=== PATIENT | female | born 1970 | race Caucasian/White ===

== ENCOUNTER → 2016-09-04 | Outpatient (CLI) | payer OTHER ==
[~2016-09-04] MED LIST: ADVIL200 M1 PO; ANTIDIARRHEAL2 MG PO; ANXIETY MED; ASPIRIN81 M2 PO; ASPIRINEC PO; AUGMENTIN400 MG PO; BACTRIM DS TABL1 TA1 PO; BENADRYL PO; BLOOD PRESSURE; BLOOD PRESSURE MED; BP MED; CELEXA10 M1 PO; CIPRO250 MG PO; CITALOPRAM HBR10 MG PO; COGENTIN PO; CORICIDIN COUGH1 TAB PO; DESYREL100 MG; DESYREL100 MG PO; DIURETIC; FLOMAX0.4 M1 PO; FLONASE 0.05% N16 G1; FLONASE 0.05% N16 GM; FLUOXETINE HCL20 M1 PO; HYDROCHLOROTHIA25 MG PO; HYDROXYZINE HCL25 M1 PO; IBUPROFEN; K-TAB ER20 MEQ PO; KEPPRA250 MG PO; LAMICTAL; LAMICTAL PO; LAMICTAL2 MG; LAMOTRIGINE OD200 MG; LAMOTRIGINE200 MG PO; LEVOTHROID25 MCG PO; LEVOTHYROXINE88 MCG PO; LEVOXYL100 MC1 PO; LOPRESSOR PO; MELOXICAM15 MG PO; METOPROLOL SUCC50 MG PO; MUCINEX PO; MUCUS RELIEF C400 MG; NAPROSYN500 MG PO; NAPROXEN PO; NORVASC PO; OLANZAPINE10 MG PO; OLANZAPINE5 MG PO; OMEPRAZOLE20 M1 PO; OMEPRAZOLE20 M2 PO; OMEPRAZOLE40 MG; OMNICEF300 MG PO; PANTOPRAZOLE SO20 MG PO; PANTOPRAZOLE SO40 MG PO; PATIENT'S PHARMACY; PAXIL PO; PHENERGAN PO; PHENERGAN25 M1 PO; PRILOSEC PO; PRILOSEC20 M1 PO; PRILOSEC20 MG PO; PROZAC PO; PYLERA CAPSULE1 CAP PO; QUETIAPINE FUM100 MG PO; QUETIAPINE FUM300 MG PO; QUETIAPINE FUM400 MG PO; RISPERIDONE PO; SEIZURE MED; SELFEMRA20 MG PO; SEROQUEL; SEROQUEL PO; SEROQUEL XR300 MG PO; SEROQUEL400 MG DOB; SEROQUEL400 MG PO; SEROQUEL50 MG DOB; SERTRALINE HCL50 M1 PO; SYNTHROID PO; SYNTHROID0.1 MG PO; SYNTHROID88 MCG PO; THYROID PILL; TOPROL XL 50 MG50 MG PO; TOPROL XL50 MG PO; VICODIN 5/1 TAB 5/50 PO; VICODIN 5/500 T1 TAB PO; VISTARIL; VOLTAREN75 MG PO; WATER PILL; ZOFRAN ODT4 MG PO; ZOLOFT50 MG PO; ZYPREXA ZYDI5 MG/TAB PO; [UNRECOGNIZED DRUG - OTHER] PO; [UNRECOGNIZED DRUG - OTHER] PO; [UNRECOGNIZED DRUG - REMARK]; [UNRECOGNIZED DRUG - REMARK] PO
--- NOTE | ~2016-09-04 | CR269 ---
[facility] A Service of [facility] RADIOLOGY TEXT RESULTS PATIENT: GAIL HOLLAND LOCATION: [facility] : 71 UNIT #: [id number] AGE: [address]: Cal Garcia MD SEX: F ORDER DR: [id number] [facility] [address] [place], [place] [address] [id number] O MR#: [id number] Acc #: [id number] NAME: GAIL HOLLAND : 1970 SEX: F STUDY DATE/TIME: 09/04/2016 9:08 UNIT: [facility] ROOM: STUDY DESCRIPTION: CR Upper GI and SBFT Attending Physician: Cal Garcia M.D. Referring Physician: Cal Garcia M.D. Ordering Physician: Cal Garcia M.D. Primary Care Physician: Gloria Gustafson A.P.R.N. MEDICAL IMAGING REPORT This report is preliminary unless electronic signature is present EXAM Upper GI and small bowel follow-through HISTORY Nausea, vomiting and diarrhea for 5 months. FINDINGS Procedure, attendant risks and options were discussed with the patient. She understands and wishes to proceed. The patient was placed in the upright position and barium and crystals were administered orally. Swallowing was normal. The esophagus was of normal course, caliber, mucosal pattern and distensibility. Double contrast views of the stomach were normal. Patient was placed in right lateral decubitus position and distended views of the esophagus were normal. There is mild scarring in the duodenal bulb. There is no evidence of active ulceration. Duodenal C-sweep was normal. The third and fourth portions of the duodenum were normal. Small bowel follow through was performed with serial imaging of the abdomen. The examination shows normal transit through the small bowel. There is no evidence of bowel wall thickening or edema. The terminal ileum in this patient was imaged and appears normal. Appendix is normal. CONCLUSION Minimal scarring in the duodenal bulb, otherwise normal upper GI and small bowel follow-through study. METRICS: Fluoroscopy 3.9 minutes. Total of 31 images recorded. Dictated by... [facility] A Service of [facility] RADIOLOGY TEXT RESULTS PATIENT: GAIL HOLLAND LOCATION: [facility] : 71 UNIT #: [id number] AGE: [address]: Cal Garcia MD SEX: F ORDER DR: Cali Aguilar M.D. THIS IS AN ELECTRONICALLY VERIFIED REPORT Cali Aguilar M.D. at 09/06/2016 7:10 AM Grecia TD: 09/04/2016 11:42 JOB #: [id number] MEDICAL IMAGING REPORT Page 1 of 1 COPY
== END | disposition home or self-care (01) ==
LOC: CRAD 08:07
DX: K62.5 Hemorrhage of anus and rectum (principal); K59.1 Functional diarrhea
CPT/HCPCS: 74245

== ENCOUNTER → 2016-09-13 | Outpatient (CLI) | payer OTHER ==
--- NOTE | ~2016-09-13 | MY11 ---
[facility] A Service of [facility] RADIOLOGY TEXT RESULTS PATIENT: GAIL HOLLAND LOCATION: [facility] : 71 UNIT #: [id number] AGE: [address]: KANDICE BRAY MD SEX: F ORDER DR: [id number] [facility] [address] [place], [place] [address] [id number] O MR#: [id number] Acc #: [id number] NAME: GAIL HOLLAND : 1970 SEX: F STUDY DATE/TIME: 09/13/2016 10:32 UNIT: [facility] ROOM: STUDY DESCRIPTION: MY Mammogram Screening Dig Justice Attending Physician: Kandice Bray M.D. Referring Physician: Gloria Gustafson A.P.R.N. Ordering Physician: Physician Non-Staff Primary Care Physician: Gloria Gustafson A.P.R.N. MEDICAL IMAGING REPORT This report is preliminary unless electronic signature is present EXAM Digital screening mammogram, 09/13/2016 HISTORY 46-year-old woman previous right lumpectomy 2014 age 44 with adjuvant radiation therapy. Annual screening. COMPARISON Mammograms date to 01/07/2014 with most recent diagnostic mammogram 06/27/2015. FINDINGS Digital imaging of each breast was completed utilizing screening protocol. Review includes FDA-approved CAD device. Breast parenchyma is partially fatty replaced in each breast. Post lumpectomy findings on the right are stable. Postradiation skin thickening is again noted. I see no residual or recurrent mass. There are no interval occurring microcalcifications and no suspicious architectural deformity. IMPRESSION Benign mammogram. Stable post lumpectomy findings right breast with some interval decrease in postradiation skin thickening. Annual screening recommended. Patients over the age of 40 are entered into a reminder system with target due date for the next mammogram. A result letter will also be sent to the patient. BIRADS: 2 Benign Finding Dictated by... Abilio Brody M.D. [facility] A Service of [facility] RADIOLOGY TEXT RESULTS PATIENT: GAIL HOLLAND LOCATION: [facility] : 71 UNIT #: [id number] AGE: [address]: KANDICE BRAY MD SEX: F ORDER DR: THIS IS AN ELECTRONICALLY VERIFIED REPORT Abilio rBody M.D. at 09/13/2016 2:16 PM Jessica TD: 09/13/2016 12:32 JOB #: [id number] MEDICAL IMAGING REPORT Page 1 of 1 COPY
== END | disposition home or self-care (01) ==
LOC: CWCC 10:10
DX: Z12.31 Encounter for screening mammogram for malignant neoplasm of breast (principal); Z98.890 Other specified postprocedural states; R23.4 Changes in skin texture
CPT/HCPCS: G0202

== ENCOUNTER 2016-10-11 14:41 | Emergency (ER) | payer OTHER ==
[~2016-10-11 14:41] MED LIST changes: -PATIENT'S PHARMACY; -RISPERIDONE PO; -ZOLOFT50 MG PO
[2016-10-11] MEDS ORDERED: PATIENT'S PHARMACY (15:30)
[2016-10-11] MEDS ORDERED: SYNTHROID PO (15:42)
[2016-10-11] MEDS ORDERED: HYDROCHLOROTHIA25 MG PO (15:42)
[2016-10-11] MEDS ORDERED: PANTOPRAZOLE SO40 MG PO (15:42)
[2016-10-11] MEDS ORDERED: ZOLOFT50 MG PO (15:42)
[2016-10-11] MEDS ORDERED: RISPERIDONE PO (15:42)
[2016-10-11] MEDS ORDERED: LOPRESSOR PO (15:43)
[2016-10-11 16:06] LABS: AMPHETAMINE NEG (NEG); BARBITURATES NEG (NEG); BENZODIAZEPINES NEG (NEG); COCAINE NEG (NEG); MARIJUANA NEG (NEG); OPIATES NEG (NEG); TRICYCLIC ANTIDEPRESSANTS NEG (NEG); U METHADONE NEG (NEG)
[2016-10-11 16:54] LABS: BLOOD UREA NITROGEN 15 mg/dL (9-23); BUN/CREATININE RATIO 18.75; CALCIUM SERUM 9.4 mg/dL (8.4-10.2); CARBON DIOXIDE 23 mmol/L (22-31); CHLORIDE 100 mmol/L (100-111); CREATININE SERUM 0.8 mg/dL (0.6-1.4); GLOM FILT RATE Estimated 89.1 mL/min (>60); GLUCOSE FASTING 137 mg/dL (70-110); SALICYLATE <4.0 mg/dL; SODIUM 134 mmol/L (135-145)
[2016-10-11 16:56] LABS: ACETAMINOPHEN <10 ug/mL; ALCOHOL BLOOD <5 mg/dL (0); POTASSIUM 3.1 mmol/L (3.5-5.1)
== END 2016-10-11 22:00 | disposition other institution (70) ==
LOC: CED 14:41
PROVIDERS: Emergency Medicine
DX: R45.851 Suicidal ideations (principal); F20.9 Schizophrenia, unspecified; Z88.8 Allergy status to other drugs, medicaments and biological substances; Z79.899 Other long term (current) drug therapy
CPT/HCPCS: 80048; 80307; 84703; 99291; G0480

== ENCOUNTER 2016-10-11 17:00 | Inpatient (IN) | payer OTHER ==
--- NOTE | ~2016-10-11 | DS ---
Unit #: [id number] #: [id number] Patient: GAIL ROBERTS [id number] [facility] [address] [place] [address] [id number] I MR#: [id number] NAME: GAIL ROBERTS ROOM: P132 Age: 46 Sex: F Admission Date: 10/11/2016 : 1970 Discharge Date: 10/19/2016 Attending Physician: Sherman Dill M.D. Primary Care Physician: Gloria Gustafson A.P.R.N. DISCHARGE SUMMARY IDENTIFYING DATA Ms. Roberts is a 46-year-old white female, who is a resident of [place], [place], and is very well known to us from previous multiple encounters and was self-referred to the hospital. DISCHARGE DIAGNOSES Psychiatric: Schizoaffective disorder, bipolar type, most recent episode depressed, recurrent, moderate, with psychotic features. Medical: Hypothyroidism. Asthma. Stressors: Moderate psychosocial stressors. HISTORY OF PRESENT ILLNESS Ms. Roberts is a 46-year-old white female with history of schizoaffective disorder, who was transferred to us from [facility] Emergency Room, where she was brought in by her family with thoughts of suicide and the patient explained that she received a letter in the mail on this day which indicated that she owed a recovery collector 1 million dollar and stated that this was more pressure than she could handle and therefore she began hearing voices in her head that was telling her to cut her throat and . The patient stated that she has not broken the law and became fearful that she will be jailed. The patient states that after reading the letter the recovery collector contacted her via telephone stating that she was going to long-term due to failure to pay and the patient reports that her anxiety is too much and she feels as though she actually cut her own throat. On evaluation by me, the patient stated that she got the letter and that it stated that she owed them 50,000,000 dollars and was seen to be very anxious and restless while talking about it, though later added by stating that she should not have opened that letter. She has been active in the treatment program and has been taking the medications; however, it appears that trigger lead her to have increasing hallucinations and now she reports increasing depression and anxiety, feelings of hopelessness and helplessness, and suicidal ideations and intent and plan and as such, a recommendation for inpatient level of care was made and the patient was transferred to us. PAST PSYCHIATRIC HISTORY The patient has had a history of multiple and several inpatient psychiatric hospitalizations over the years including being at [facility], at [facility], at [facility], at [facility], at [facility] and has had outpatient treatment through [facility], and has been diagnosed and treated for schizoaffective disorder, bipolar type, and currently, has been seeing a psychiatrist through [facility]. Unit #: [id number] #: [id number] Patient: GAIL ROBERTS PAST MEDICAL HISTORY The patient's medical history is significant for hypothyroidism and hypertension. HOSPITAL COURSE The patient was admitted to the adult psychiatric unit at [facility] and was oriented to the hospital environment. Routine p.r.n. medications were initiated, and she was started back on her home medications and medications were adjusted and she was closely monitored. She was taking the medications regularly, though was having some episodes of acute psychosis requiring management, p.r.n. medications to be given and Geodon was then added and was gradually titrated up to 60 mg b.i.d. and she was able to show a therapeutic response with improvement in depression and psychosis and was not seen to be agitated and aggressive and family felt comfortable taking her home and as such, it was decided that she will be discharged home. We will continue treatment on an outpatient basis. DISCHARGE MEDICATIONS Geodon 60 mg b.i.d. for bipolar and psychosis and Zoloft 50 mg in the morning for depression. DISCHARGE CONDITION Stable. PROGNOSIS Fair. Dictated by... Jian Berrios/lex TD: 10/21/2016 14:24 JOB #: [id number] DISCHARGE SUMMARY Page 1 of 1 X Sherman Dill MD X DISCHARGE SUMMARY
--- NOTE | ~2016-10-11 | PN ---
Unit #: [id number] #: [id number] Patient: GAIL ROBERTS [id number] [facility] [address] [place] [address] [id number] I MR#: [id number] NAME: GAIL ROBERTS ROOM: 79 Age: 46 Sex: F Admission Date: 10/11/2016 : 1970 Attending Physician: Sherman Dill M.D. Admitting Physician: Sherman Dill M.D. Primary Care Physician: Daria PeñaCE PROGRESS NOTES DATE October 14, 2016 DISCUSSION Ms. Gail Roberts is a 46-year-old white female, with mood disorder and psychosis, who was seen today and chart was reviewed and the case was discussed with the staff. Staff reports that the patient had a rough day yesterday and was acutely psychotic and acting out last night and p.r.n. medication had to be given to cut down on agitation and psychosis. The patient remains anxious, withdrawn, and seclusive to herself this morning with bizarre behavior and disorganized thoughts and maintaining persistent paranoia and delusional behavior; however, she has been taking medications and tolerating them fairly well with no reported side effects. MENTAL STATUS EXAMINATION Middle-aged white female, who was casually dressed with fair personal hygiene and appears to be in no acute distress or discomfort. She was awake and alert on interaction with intact orientation. Her mood was anxious with a congruent affect. The patient denies any suicidal or homicidal ideations. Her insight and judgment remain significantly impaired. TREATMENT PLAN 1. We will continue her on her current medications and treatment protocol, and will monitor her response to the medications, and make further adjustments as needed. 2. We will continue to followup. Dictated by... Jian Berrios/alex TD: 10/14/2016 10:34 JOB #: [id number] Unit #: [id number] #: [id number] Patient: GAIL ROBERTS [facility] PROGRESS NOTES Page 1 of 1 X Fuentes,Sherman Mccarty MD X PROGRESS NOTE
--- NOTE | ~2016-10-11 | PA ---
Unit #: [id number] #: [id number] Patient: GAIL HOLLAND [id number] [facility] [address] [place] [address] [id number] I MR#: [id number] NAME: GAIL HOLLAND ROOM: P179 Age: 46 Sex: F Admission Date: 10/11/2016 : 1970 Date of Assessment: Attending Physician: Sherman Dill M.D. Admitting Physician: Sherman Dill M.D. Primary Care Physician: Gloria Gustafson A.P.R.N. PSYCHIATRIC ASSESSMENT DATE OF SERVICE 10/12/2016. IDENTIFYING DATA Ms. Holland is a 46-year-old white female, who is a resident of [place], [place], and carries a long history of chronic mental illness and is very well known to us from previous multiple encounters and was self-referred to the hospital. CHIEF COMPLAINT "I've been hearing voices in my head telling me to cut my throat and ." HISTORY OF PRESENT ILLNESS Ms. Holland is a 46-year-old white female with history of schizoaffective disorder, who was transferred to us from [facility] Emergency Room, where she was brought in by her family with thoughts of suicide and the patient explained that she received a letter in the mail on this day which indicated that she owed a marketing professional 1 million dollar and stated that this was more pressure than she could handle and therefore she began hearing voices in her head that was telling her to cut her throat and . The patient stated that she has not broken the law and became fearful that she will be jailed. The patient states that after reading the letter the marketing professional contacted her via telephone stating that she was going to intermediate due to failure to pay and the patient reports that her anxiety is too much and she feels as though she actually cut her own throat. On evaluation by me, the patient stated that she got the letter and that it stated that she owed them 50,000,000 dollars and was seen to be very anxious and restless while talking about it, though later added by stating that she should not have opened that letter. She has been active in the treatment program and has been taking the medications; however, it appears that trigger lead her to have increasing hallucinations and now she reports increasing depression and anxiety, feelings of hopelessness and helplessness, and suicidal ideations and intent and plan and as such, a recommendation for inpatient level of care was made and the patient was transferred to us. SUBSTANCE ABUSE HISTORY The patient reports occasional experimentation with alcohol, but denies any other drug abuse. PAST PSYCHIATRIC HISTORY The patient has had a history of multiple and several inpatient psychiatric hospitalizations over the years including being at [facility] Unit #: [id number] #: [id number] Patient: [facility], at [facility], at [facility], at [facility], at [facility] and has had outpatient treatment through [facility], and has been diagnosed and treated for schizoaffective disorder, bipolar type, and currently, has been seeing a psychiatrist through [facility]. PAST MEDICAL HISTORY The patient's medical history is significant for hypothyroidism and hypertension. ALLERGIES The patient has listed allergies to a long list of medications including aripoprazole, Depakote, Celexa, Haldol, Risperdal, Topamax, gabapentin, olanzapine, quetiapine, and Latuda. PERSONAL AND SOCIAL HISTORY A 46-year-old white female, who reports that she is single, unemployed, and lives at home with her mother and has fairly decent social support system. MENTAL STATUS EXAMINATION Middle-aged white female, who was casually dressed with fair personal hygiene, appears to be in no acute distress or discomfort. She was awake and alert on interaction with intact orientation. Her mood was anxious and depressed with a congruent affect. Her speech was slow and restricted in content. Her thought processes were disorganized with some looseness of associations and flight of ideas. Her insight and judgment remain significantly impaired. DIAGNOSTIC IMPRESSION Psychiatric: Schizoaffective disorder, bipolar type, most recent episode depressed, recurrent, moderate, with psychosis. Medical: Hypothyroidism and asthma. Stressors: Moderate psychosocial stressors. TREATMENT PLAN 1. The patient has presented with a history of chronic mental illness and has been decompensating and will need inpatient hospitalization for safety and stabilization. We will start her back on her home medications and we will adjust the medications and monitor response. 2. Supportive therapy was provided to the patient. 3. Safe, structured, and nourishing environment will be provided. ESTIMATED LENGTH OF STAY 5 to 7 days. ABILITY TO HELP SELF Limited. WILLINGNESS TO HELP SELF The patient appears to be willing to help self. STRENGTHS 1. Communicative. 2. Cooperative. PROBLEMS 1. Chronic dysphoric symptoms. 2. Chronic chemical dependency. Unit #: [id number] #: [id number] Patient: GAIL HOLLAND 3. Poor social support system. DISCHARGE CRITERIA This will be contingent upon the patient's ability to show resolution of her depression and psychosis and her ability to stay safe to herself, particularly after discharge from the hospital. Dictated by... Sherman Dill M.D. WALLY/lex TD: 10/12/2016 20:39 JOB #: [id number] PSYCHIATRIC ASSESSMENT Page 1 of 1 X Sherman Dill MD PSYCHIATRIC ASSESSMENT
--- NOTE | ~2016-10-11 | PN ---
Unit #: [id number] #: [id number] Patient: GAIL HOLLAND [id number] [facility] [address] [place] [address] [id number] I MR#: [id number] NAME: GAIL HOLLAND ROOM: 32 Age: 46 Sex: F Admission Date: 10/11/2016 : 1970 Attending Physician: Sherman Dill M.D. Admitting Physician: Sherman Dill M.D. Primary Care Physician: Daria Peña PROGRESS NOTES DATE OF SERVICE 10/15/2016 DISCUSSION Armando is a 46-year-old white female with mood disorder and psychosis who was seen today. Chart was reviewed and case was discussed with the staff who reported the patient had an episode of choking last night while she was munching on pretzels, and her roommate had to do Heimlich maneuver on her, and the patient was educated not to have that dry snacks. Meanwhile, she has been taking the medications and tolerating them fairly well with no reported side effects. MENTAL STATUS EXAMINATION Young white female who is casually dressed with fair personal hygiene, appears to be in no acute distress or discomfort. She was awake and alert with intact orientation. Her mood is anxious with a congruent affect. She denies any suicidal or homicidal ideations. Her insight and judgment remain slightly impaired. TREATMENT PLAN 1. We will continue her on her current medications and treatment protocol. We will monitor her response to the medications and make further adjustments as needed. 2. We will continue to follow up. Dictated by... Jian Berrios/marquis TD: 10/15/2016 14:43 JOB #: [id number] Unit #: [id number] #: [id number] Patient: GAIL HOLLAND PROGRESS NOTES Page 1 of 1 X Sherman Dill MD PROGRESS NOTE
--- NOTE | ~2016-10-11 | PN ---
Unit #: [id number] #: [id number] Patient: GAIL ROBERTS [id number] [facility] [address] [place] [address] [id number] I MR#: [id number] NAME: GAIL ROBERTS ROOM: 32 Age: 46 Sex: F Admission Date: 10/11/2016 : 1970 Attending Physician: Sherman Dill M.D. Admitting Physician: Sherman Dill M.D. Primary Care Physician: Daria Peña PROGRESS NOTES DATE OF SERVICE: 10/18/2016 SUBJECTIVE Ms. Roberts is a 46-year-old white female, who was seen today and chart was reviewed and the case was discussed with the staff. She has been anxious, withdrawn, and rather seclusive to herself and has been exhibiting bizarre behavior; however, no agitation or aggression has been noted. MENTAL STATUS EXAMINATION Middle-aged white female, who was casually dressed with fair personal hygiene, appears to be in no acute distress or discomfort. She was awake and alert with impaired attention and concentration. Her mood was anxious with a congruent affect. Her speech was slow and restricted in content. Her thought processes were disorganized with some looseness of association. Her insight and judgment remain slightly impaired. TREATMENT PLAN 1. We will continue her on her current medications and treatment protocol, and we will monitor her response to the medications and make further adjustments as needed. 2. We will continue to follow up. Dictated by... Jian Berrios/lex TD: 10/18/2016 19:19 JOB #: [id number] RAJENDRA PROGRESS NOTES Page 1 of 1 X Sherman Dill MD PROGRESS NOTE
--- NOTE | ~2016-10-11 | HP ---
Unit #: [id number] #: [id number] Patient: GAIL HOLLAND [id number] [place] [address] [id number] I MR#: [id number] NAME: GAIL HOLLAND ROOM: P179 Age: 46 Sex: F Admission Date: 10/11/2016 : 1970 Attending Physician: Sherman Dill M.D. Admitting Physician: Sherman Dill M.D. Primary Care Physician: Gloria Gustafson A.P.R.N. HISTORY AND PHYSICAL HISTORY OF PRESENT ILLNESS Gail is a 46-year-old female admitted on 10/11/2016 to [facility] for depression and suicidal ideation. PAST MEDICAL HISTORY 1. Obesity. 2. Hypertension. 3. Breast cancer. 4. Hypothyroidism. PAST SURGICAL HISTORY 1. Lumpectomy. 2. Hysterectomy. ALLERGIES Omeprazole, divalproex sodium, Celexa, haloperidol, risperidone, topiramate, gabapentin, olanzapine, quetiapine, and Latuda. SOCIAL HISTORY Reports a history of tobacco use. She quit in 2010. History of alcohol use. Her last use in 2002 and a history of illegal drug use but her last of that was in 2002 as well. She is currently and living with her mother. FAMILY HISTORY Noncontributory. REVIEW OF SYSTEMS CONSTITUTIONAL: No fever or chills. HEENT: Denies any sore throat, ear pain or runny nose. CARDIOVASCULAR: Denies chest pain, irregular heart rhythm or palpitations. CHEST: Denies shortness of breath or cough. No hemoptysis. GASTROINTESTINAL: Denies nausea, vomiting, diarrhea or chronic constipation. ENDOCRINE: Denies history of increased thirst or urination. No recent significant weight loss or gain. GENITOURINARY: Denies dysuria, frequency, or hematuria. SKIN: Denies any rashes. HEMATOLOGIC: Denies history of increased bleeding or bruising. MUSCULOSKELETAL: Denies any hot, swollen joints. No generalized muscle pain. NEUROLOGIC: Denies problems with vision or speech. No frequent, severe headaches. No numbness, tingling or weakness in any extremities. Denies Unit #: [id number] #: [id number] Patient: GAIL HOLLAND loss of bladder or bowel control. CURRENT MEDICATIONS 1. Sertraline. 2. Hydrochlorothiazide. 3. Levothyroxine. PHYSICAL EXAMINATION GENERAL: Alert, oriented, in no acute distress. VITAL SIGNS: Blood pressure 154/90, heart rate 72. HEIGHT: 5 feet 6. WEIGHT: 200 pounds. SKIN: Warm and dry without rash or lesion. HEENT: Normocephalic. TMs not viewed. Oral and nasal passages clear. Conjunctivae clear. PERRLA. EOMs intact. NECK: Supple without lymphadenopathy or thyromegaly. HEART: Regular rate and rhythm without murmur. LUNGS: Clear. ABDOMEN: Soft, nontender, without masses or hepatosplenomegaly. : Not done. EXTREMITIES: No evidence of cyanosis, clubbing or edema. Moves all without focal deficit. NEUROLOGICAL: Grossly within normal limits. Cranial Nerves: II: Visual lomeli are intact. III, IV AND : Extraocular movements are intact. Pupils are equal, round and reactive to light. V: Facial sensation is grossly normal. VII: Facial movements and expression are normal. VIII: Auditory acuity grossly intact. IX, X: Uvula is midline. Phonation is normal. XI: Patient shrugs shoulders and turns head normally. XII: Tongue protrudes in the midline. Sensory and Motor Function: Sensory and motor sensation is grossly normal. Motor: moves all extremities well. Coordination: Gait is normal. Deep Tendon Reflexes: Intact. IMPRESSION 1. Psychiatric admission. 2. Obesity. 3. Hypertension. 4. History of breast cancer. 5. Hypothyroidism. RECOMMENDATIONS PSYCHIATRIC: Per psychiatrist. MEDICAL: No contraindications to participate in facility's activities. MEDICAL PROGNOSIS Good. MEDICAL CONDITION Stable. Dictated by... Bryce EastmanRClaritza Unit #: [id number] #: [id number] Patient: GAIL HOLLAND GERMAN/ton TD: 10/12/2016 18:49 JOB #: [id number] HISTORY AND PHYSICAL Page 1 of 1 X EMILIA JOHNS APRN X HISTORY AND PHYSICAL
--- NOTE | ~2016-10-11 | PN ---
Unit #: [id number] #: [id number] Patient: GAIL ROBERTS [id number] [facility] [address] [place] [address] [id number] I MR#: [id number] NAME: GAIL ROBERTS ROOM: [facility] Age: 46 Sex: F Admission Date: 10/11/2016 : 1970 Attending Physician: Sherman Dill M.D. Admitting Physician: Sherman Dill M.D. Primary Care Physician: Daria Peña PROGRESS NOTES DATE 10/13/2016 DISCUSSION Ms. Roberts is a 46-year-old white female who was seen today and chart was reviewed and case was discussed with the staff. She has been anxious, withdrawn and rather seclusive to herself. Meanwhile, she has been cooperative with treatment recommendations. She has been taking the medications and tolerating them fairly well with no reported side effects. MENTAL STATUS EXAMINATION Middle-aged white female who was casually dressed with fair personal hygiene, appears to be in no acute distress or discomfort. She was awake and alert with impaired attention and concentration. Her mood was anxious with congruent affect. She denies any suicidal or homicidal ideations. Her insight and judgement remains slightly impaired. TREATMENT PLAN 1. We will continue her on her current medications and treatment protocol. We will monitor her response to the medication and make further adjustments as needed. 2. We will continue to follow up. Dictated by... Jian Berrios/frieda TD: 10/13/2016 22:31 JOB #: [id number] Unit #: [id number] #: [id number] Patient: GAIL ROBERTS PROGRESS NOTES Page 1 of 1 X Sherman Dill MD PROGRESS NOTE
--- NOTE | ~2016-10-11 | PN ---
Unit #: [id number] #: [id number] Patient: GAIL HOLLAND [id number] [facility] [address] [place] [address] [id number] MR#: [id number] NAME: GAIL HOLLAND ROOM: 32 Age: 46 Sex: F Admission Date: 10/11/2016 : 1970 Attending Physician: Sherman Dill M.D. Admitting Physician: Sherman Dill M.D. Primary Care Physician: Daria Peña PROGRESS NOTES DATE OF SERVICE 10/17/2016 DISCUSSION Ms. Holland is a 46-year-old white female with mood disorder and psychosis who was seen today. Chart was reviewed and case was discussed with the staff who report the patient has not been doing good and has been with episode of increased psychosis and had to be given intramuscular injection of Geodon as the patient was psychotic and agitated, paranoid, delusional, and once again this morning she was pacing the hallways and crying and getting anxious and restless, and has been taking the medications and has not been able to show a therapeutic response. MENTAL STATUS EXAMINATION Middle-aged white female who was casually dressed with fair personal hygiene, appears to be in no acute distress or discomfort. The patient was awake and alert with impaired attention and concentration. Her mood is anxious with congruent affect. Speech is fluent and tangential. Thought processes were disorganized with some looseness of associations and flight of ideas. Her insight and judgment remain significantly impaired. TREATMENT PLAN 1. We will continue her on her current medications and treatment protocol. We will monitor her response to the medications and make further adjustments as needed. 2. We will continue to follow up. Dictated by... Sherman Dill M.D. IAA/bzg TD: 10/17/2016 12:20 JOB #: [id number] Unit #: [id number] #: [id number] Patient: GAIL HOLLAND PROGRESS NOTES Page 1 of 1 X Sherman Dill MD X PROGRESS NOTE
--- NOTE | ~2016-10-11 | PN ---
Unit #: [id number] #: [id number] Patient: GAIL ROBERTS [id number] [facility] [address] [place] [address] [id number] MR#: [id number] NAME: GAIL ROBERTS ROOM: 32 Age: 46 Sex: F Admission Date: 10/11/2016 : 1970 Attending Physician: Sherman Dill M.D. Admitting Physician: Sherman Dill M.D. Primary Care Physician: Daria Peña PROGRESS NOTES DATE October 16, 2016 DISCUSSION Ms. Roberts is a 46-year-old white female, who was seen today and chart was reviewed and the case was discussed with the staff. She has been anxious, withdrawn, and rather seclusive to herself. Meanwhile, she has been cooperative with the treatment recommendations and she has been taking the medications and tolerating them fairly well with no reported side effects. She remains acutely psychotic with bizarre behavior and persistent paranoia, and anxiety. MENTAL STATUS EXAMINATION Middle-aged white female, who was casually dressed with fair personal hygiene and appears to be in no acute distress or discomfort. She was awake and alert with impaired attention and concentration. Her mood was anxious and depressed with a congruent affect. Her speech is slow and restricted in content. Her thought processes are disorganized with some looseness of associations and paranoid ideations with delusional behavior. Her insight and judgment remain significantly impaired. TREATMENT PLAN 1. We will continue her on her current medications and treatment protocol, and will monitor her response to the medications, and make further adjustments as needed. 2. We will continue to followup. Dictated by... Jian Berrios/alex TD: 10/16/2016 11:25 JOB #: [id number] Unit #: [id number] #: [id number] Patient: GAIL ROBERTS PROGRESS NOTES Page 1 of 1 X Sherman Dill MD PROGRESS NOTE
[~2016-10-11 17:00] MED LIST changes: +PATIENT'S PHARMACY; +RISPERIDONE PO; +ZOLOFT50 MG PO
[2016-10-14 12:24] LABS: BASOPHIL# 0.1 X10e3 (0-0.3); EOSINOPHIL# 0.2 X10e3 (0-0.7); EOSINOPHIL% 2.8 % (0.0-7.0); HEMATOCRIT 41.2 % (35.0-45.0); HEMOGLOBIN 13.3 gm/dL (12.0-16.0); LYMPHOCYTE% 24.3 % (17.0-45.0); MEAN CELL VOLUME 86.3 FL (83-96); MEAN CORPUSCULAR HGB CONC 32.4 g/dL (30-36); MEAN PLATELET VOLUME 8.5 FL (6.5-11.5); MONOCYTE# 0.5 X10e3 (0-1.0); MONOCYTE% 5.7 % (3.0-12.0); NEUTROPHIL# 5.5 X10e3 (1.5-7.1); NEUTROPHIL% 66.2 % (40-75); PLATELET COUNT 311 X10e3 (140-420); RED BLOOD COUNT 4.77 X10e (3.90-5.30); RED CELL DISTRIBUTION WIDTH 14.3 % (11.0-15.5); WHITE BLOOD COUNT 8.3 X10e3 (4.0-10.5)
[2016-10-14 12:31] LABS: DIFF IND NO
[2016-10-14 12:49] LABS: ALBUMIN SERUM 3.9 g/dL (3.5-5.0); BILIRUBIN,TOTAL 0.3 mg/dL (0.2-2.0); CALCIUM SERUM 9.3 mg/dL (8.4-10.2); CREATININE SERUM 0.6 mg/dL (0.6-1.4); GLOM FILT RATE Estimated 110.1 mL/min (>60); POTASSIUM 3.9 mmol/L (3.5-5.1); PROTEIN TOTAL SERUM 6.9 g/dL (6.0-8.3)
[2016-10-15 09:54] LABS: URINE APPEARANCE CLEAR; URINE BILIRUBIN NEG (NEG); URINE BLOOD NEG (NEG); URINE COLOR YELLOW; URINE GLUCOSE NEG (NEG); URINE KETONE NEG (NEG); URINE LEUKOCYTE ESTERASE 1+ (NEG); URINE NITRATE NEG (NEG); URINE PH 5.5 (5-8); URINE PROTEIN NEG (NEG); URINE SPECIFIC GRAVITY 1.017 (1.003-1.035); URINE UROBILINOGEN 0.2 MG/DL (NEG)
[2016-10-15 09:57] LABS: URBCS1 AUWI 0-2 /[HPF] (0-2); URINE BACTERIA AUWI NEG (NEGATIVE); URINE SQUAMOUS EPITHELIAL CELL NONE SEEN /[HPF]
[2016-10-15 10:34] LABS: AMPHETAMINE NEG (NEG); BARBITURATES NEG (NEG); BENZODIAZEPINES NEG (NEG); COCAINE NEG (NEG); MARIJUANA NEG (NEG); OPIATES NEG (NEG); TRICYCLIC ANTIDEPRESSANTS NEG (NEG); U METHADONE NEG (NEG)
== END 2016-10-19 14:32 | disposition home or self-care (01) | DRG 885 ==
LOC: P1S 22:51 → P1E 22:51 → P1S 10-14 21:14
PROVIDERS: Psychiatry & Neurology Psychiatry
DX: F25.9 Schizoaffective disorder, unspecified (principal); E03.9 Hypothyroidism, unspecified; J45.909 Unspecified asthma, uncomplicated
CPT/HCPCS: 80053; 80307; 81003; 85025; J3486